=== PATIENT | female | born 1995 ===

== ENCOUNTER 2016-10-25 14:27 | Emergency (ER) | payer MEDICAID ==
--- NOTE | 2016-10-25 15:39 | OBHP ---
Datetime: 10/25/2016 15:20 IP Adm Impression: Term, intrauterine ; No Active Labor; Intact Membranes IP Admit Plan: Discharge home Admit Comment, IP Provider: IUP at 40w today c/o ctx pain this afternoon while walking. No SROM. no VB +FM PNC [facility] REED EDC today chart rev'd GBS NEG PMH: denies PSH:denies NKA POBH: TOPX3 PGYNH: denies STD A: IUP 40w not in labor PLAN: discharge homne labor instructions follow up [facility] this friday as scheduled Pelvic Type - PN: Adequate Extremities - PN: Normal Abdomen - PN: Normal Back - PN: Normal Breast - PN: Not Done Lungs - PN: Normal Heart - PN: Normal Thyroid - PN: Normal Neurologic - PN: Normal HEENT - PN: Normal General - PN: Normal Presentation-Admit: Vertex IP Fetus A Comments: Sonogram cephalic FHR - Baseline A Provider: 130 Membranes, Provider: Intact Contraction Comments Provider: Occ Pool Provider: Negative IP Hx Assessment: The History has been Reviewed and is Current EGA AdmitDate IP: 40.0 IP Chief Complaint: Uterine contractions NICHD Variability Prov Fetus A: Moderate 6-25bpm NICHD Accel Fetus A IP Provider: [id number] FHR Category Provider Fetus A: Category I NICHD Decel Fetus A IP Provider: None Dilatation, Provider: 0 Effacement, Provider: 0 Station, Provider: high Genitourinary Exam: Normal DTRs - PN: Normal
--- NOTE | 2016-10-25 15:41 | OBDCSUM ---
Datetime: 10/25/2016 15:38 Discharged to, Provider: Home Follow up at, Provider: [facility] Follow up at, Provider: [facility] Disch Instr Activity: Normal activity Disch Instr Diet: Regular Discharge Instructions, Provider: Routine instructions given Discharge Diagnosis, Provider: False Labor - Undelivered Discharge Time: 10/25/2016 15:39 Follow up in weeks, Provider: Friday Follow up in weeks, Provider: this friday as scheduled Disch Referrals: None Contraception discussed, Prov: Yes
[2016-10-25 22:00] VITALS: BP 118/64; PULSE 95; RESP 17; O2SAT 100
== END 2016-10-25 15:45 | disposition home or self-care (01) ==
LOC: H.EROB2 14:27
DX: O47.1 False labor at or after 37 completed weeks of gestation (principal); O48.0 Post-term pregnancy; Z3A.40 40 weeks gestation of pregnancy